=== PATIENT | male | born 1935 | race Caucasian/White ===

== ENCOUNTER 2021-03-10 20:28 | Inpatient (IN) ==
[2021-03-10] MEDS ORDERED: Vasopressin 100 UNITS in D5W 250 ml BAG 245 ML IV SCH (23:30)
[2021-03-10] MEDS ORDERED: Norepinephrine 16MCG/ML IVPRE 4,000 MCG/250 ML BAG IV SCH (23:45)
[2021-03-10] MEDS ORDERED: NORMOSOL-R pH 7.4 1000 mL BAG 1,000 ML IV SCH (23:45)
[2021-03-11] MEDS ORDERED: NS 0.9% 1000 ml BAG 1,000 ML IV ONE (00:02)
[2021-03-11] MEDS ORDERED: Lorazepam PYXIS KEY PRN ×2 (00:18→00:49)
[2021-03-11] MEDS ORDERED: LORazepam 2 mg VIAL 1 ml IV PUSH PRN (00:18)
[2021-03-11] MEDS ORDERED: Lorazepam PYXIS KEY ONE (00:23)
[2021-03-11] MEDS ORDERED: LORazepam 2 mg VIAL 1 ml ONE (00:23)
[2021-03-11] MEDS ORDERED: Morphine PCA ADULT 5 MG/ML 30 ML PCA SCH (00:30)
[2021-03-11] MEDS ORDERED: LORazepam 2 mg VIAL 1 ml IV PUSH ONE (00:49)
[2021-03-11 01:01] VITALS: BP 81/56
== END 2021-03-11 00:44 | disposition expired | DRG 190 ==
LOC: ICU 23:10
PROVIDERS: ADMIT Hospitalist; ATTEND Hospitalist